=== PATIENT | female | born 1960 | race Caucasian/White ===

== ENCOUNTER 2021-10-15 09:06 | Emergency (ER) | payer MEDICAID, OTHER | END 2021-10-15 11:10 | disposition home or self-care (01) | LOC: CC.ED 09:06 | DX: S83.91XA Sprain of unspecified site of right knee, initial encounter (principal); M17.11 Unilateral primary osteoarthritis, right knee; Z88.5 Allergy status to narcotic agent; Z79.82 Long term (current) use of aspirin; X50.1XXA Overexertion from prolonged static or awkward postures, initial encounter | CPT/HCPCS: 73562-RT; 99283 ==

== ENCOUNTER 2021-10-17 20:42 | Emergency (ER) | payer MEDICAID ==
[2021-10-17] MEDS ORDERED: Ketorolac 60 MG/2 ML SDV IM ONE (21:28)
== END 2021-10-17 21:34 | disposition home or self-care (01) ==
LOC: SUPCPDRO 20:42 → CC.ED 20:42
DX: M17.11 Unilateral primary osteoarthritis, right knee (principal); E78.00 Pure hypercholesterolemia, unspecified; I10 Essential (primary) hypertension; K21.9 Gastro-esophageal reflux disease without esophagitis; E03.9 Hypothyroidism, unspecified; Z88.5 Allergy status to narcotic agent; Z79.82 Long term (current) use of aspirin; Z79.899 Other long term (current) drug therapy
CPT/HCPCS: 96372; 99283; J1885

== ENCOUNTER 2022-03-11 14:13 | Emergency (ER) | payer MEDICAID ==
[2022-03-11] MEDS ORDERED: Sodium Chloride 0.9% 10 ML Syringe FLUSH PRN (14:22)
[2022-03-11] MEDS ORDERED: Alum Hydrox/Mag Hydrox/Simeth 30 ML, Lidocaine 2% 15 ML PO ONE ×2 (14:24)
[2022-03-11] MEDS ORDERED: Sodium Chloride 0.9% 1,000 ML IV SCH (14:30)
[2022-03-11] MEDS ORDERED: Metoclopramide 10 MG/2 ML SDV IVPUSH ONE (14:58)
[2022-03-11 15:22] VITALS: BP 139/70; PULSE 97
[2022-03-11] MEDS ORDERED: Simethicone 80 MG Tab.Chew PO ONE (15:27)
== END 2022-03-11 17:29 | disposition home or self-care (01) ==
LOC: CC.ED 14:13
DX: U07.1 COVID-19 (principal); R11.2 Nausea with vomiting, unspecified; E78.00 Pure hypercholesterolemia, unspecified; I10 Essential (primary) hypertension; K21.9 Gastro-esophageal reflux disease without esophagitis; E03.9 Hypothyroidism, unspecified; Z88.5 Allergy status to narcotic agent; Z79.899 Other long term (current) drug therapy
CPT/HCPCS: 36415; 80053; 81001; 83735; 85025; 87804; 96361; 96374; 99284; 99284-25; A9270-GY; J2765; J7030; U0002

== ENCOUNTER 2023-08-27 13:52 | Day surgery (SDC) | payer MEDICAID ==
[2023-08-27] MEDS: Lactated Ringers 1,000 ML IV SCH (14:25)
[2023-08-27] MEDS ORDERED: fentaNYL 50 MCG/ML SDV ONE (14:32)
[2023-08-27] MEDS ORDERED: Propofol 200 MG/20 ML SDV ONE ×2 (14:32)
[2023-08-27] MEDS ORDERED: Ketamine 200 MG/20 ML MDV ONE (14:32)
== END 2023-08-27 16:02 | disposition home or self-care (01) ==
LOC: CC.SDS 13:52
PROVIDERS: ATTEND Family Medicine
DX: Z12.11 Encounter for screening for malignant neoplasm of colon (principal); D12.0 Benign neoplasm of cecum; D12.3 Benign neoplasm of transverse colon; R19.5 Other fecal abnormalities; K57.30 Diverticulosis of large intestine without perforation or abscess without bleeding; G47.30 Sleep apnea, unspecified
CPT/HCPCS: 00811; 45380; 45385; J2704; J3010; J7120; J3490

== ENCOUNTER 2023-10-15 19:17 | Emergency (ER) | payer MEDICAID | END 2023-10-15 20:08 | disposition home or self-care (01) | LOC: CC.ED 19:17 | DX: T81.31XA Disruption of external operation (surgical) wound, not elsewhere classified, initial encounter (principal); E78.00 Pure hypercholesterolemia, unspecified; I10 Essential (primary) hypertension; J45.909 Unspecified asthma, uncomplicated; K21.9 Gastro-esophageal reflux disease without esophagitis; E03.9 Hypothyroidism, unspecified; Z90.49 Acquired absence of other specified parts of digestive tract; Z90.710 Acquired absence of both cervix and uterus; Z79.82 Long term (current) use of aspirin; Z79.899 Other long term (current) drug therapy | CPT/HCPCS: 99283 ==

== ENCOUNTER 2025-01-10 10:00 | Observation (INO) | payer MEDICAID ==
[2025-01-10] MEDS: Orphenadrine 60 MG/2 ML Inj IV ONE (10:35)
[2025-01-10 10:38] LABS: BASOPHILS ABSOLUTE AUTO 0.02 10^3/uL (0.00-0.50); BASOPHILS PERCENT AUTO 0.3 % (0-1); EOSINOPHILS ABSOLUTE AUTO 0.13 10^3/uL (0.00-1.50); EOSINOPHILS PERCENT AUTO 2.0 % (0-6); IMMATURE GRAN ABSOLUTE AUTO 0.01 10^3/uL (0.00-0.49); IMMATURE GRAN PERCENT AUTO 0.2 % (0.0-4.9); LYMPHOCYTES ABSOLUTE AUTO 2.04 10^3/uL (0.60-5.00); LYMPHOCYTES PERCENT AUTO 30.9 % (24-44); MONOCYTES ABSOLUTE AUTO 0.64 10^3/uL (0.00-1.50); MONOCYTES PERCENT AUTO 9.7 % (0-10); NEUTROPHILS ABSOLUTE AUTO 3.76 x10^3/uL (1.80-8.00); NEUTROPHILS PERCENT AUTO 56.9 % (41-71); PLATELET COUNT,PLT 175 10^3/uL (150-400); RED BLOOD CELL COUNT 4.41 x10^6/uL (4.00-5.50); WHITE BLOOD CELL COUNT,WBC 6.6 10^3/uL (4.0-11.0)
[2025-01-10 10:50] LABS: ALANINE AMINOTRANSFERASE,ALT 46.0 U/L (12-78); ASPARTATE AMNIOTRANSFERASE,AST 23.0 U/L (15-37); BILIRUBIN TOTAL 0.5 mg/dL (0.0-1.0); BLOOD UREA NITROGEN,BUN 20.0 mg/dL (7-18); CARBON DIOXIDE,CO2 29.0 mmol/L (21-32); CHLORIDE,CL 105.0 mEq/L (98-106); CREATININE 0.9 mg/dL (0.6-1.0); EST CRCL DRUG DOSING (CG) 54.53 mL/min; ESTIMATED GFR 71.0 mL/min (>=60); GLUCOSE RANDOM 101.0 mg/dL (75-99); POTASSIUM,K 4.8 mEq/L (3.5-5.0); PROTEIN TOTAL,TP 6.9 g/dL (6.4-8.2); SODIUM,NA 143.0 mEq/L (136-145)
[2025-01-10 10:59] LABS: APPEARANCE,URINE SLIGHTLY CLOUDY (CLEAR); GLUCOSE,URINE NEGATIVE (NEGATIVE); OCCULT BLOOD,URINE TRACE-INTACT (NEGATIVE)
[2025-01-10 11:09] LABS: EPITHELIAL CELLS,URINE MODERATE /HPF (NOT SEEN)
[2025-01-10] MEDS: methylPREDNISolone Sodium Succinate 125 MG/2 ML SDV IVPUSH STA (11:12)
[2025-01-10] MEDS ORDERED: Ondansetron 4 MG/2 ML SDV IV PRN (11:59)
[2025-01-10] MEDS ORDERED: Ondansetron 4 MG Tab.DIS PO PRN (11:59)
[2025-01-10] MEDS ORDERED: Ketorolac 30 MG/ML SDV IVPUSH PRN (15:43)
[2025-01-10] MEDS: Acetaminophen/HYDROcodone 325-5 MG Tab PO PRN (15:52)
[2025-01-10] MEDS ORDERED: Non-Formulary Medication 1 Each (Diclofenac Sodium [Voltaren] 75 MG Tab.Ec) PO SCH (17:30)
[2025-01-10] MEDS ORDERED: Non-Formulary Medication 1 Each (Fluticasone Propion/Salmeterol [Fluticasone-Salmeterol 11 IH SCH (20:00)
[2025-01-10] MEDS ORDERED: Nystatin Topical Powder 15 GM Bottle TOP PRN (20:00)
[2025-01-10] MEDS: methylPREDNISolone Sodium Succinate 40 MG/1 ML SDV IVPUSH SCH (20:03)
[2025-01-10] MEDS: buPROPion 150 MG Tab.ER PO SCH (20:06)
[2025-01-11] MEDS: Calcium Carbonate/Vitamin D3 1250 MG-5 MCG Tab PO SCH (07:30)
[2025-01-11] MEDS ORDERED: Non-Formulary Medication 1 Each (Meloxicam [Meloxicam] 15 MG Tablet) PO SCH (08:00)
== END 2025-01-11 11:30 | disposition home or self-care (01) ==
LOC: CC.ED 10:00 → CC.MS 11:39
PROVIDERS: ADMIT Nurse Practitioner; ATTEND Nurse Practitioner
DX: M51.26 Other intervertebral disc displacement, lumbar region (principal); M54.16 Radiculopathy, lumbar region; E78.00 Pure hypercholesterolemia, unspecified; I10 Essential (primary) hypertension; E03.9 Hypothyroidism, unspecified; F32.A Depression, unspecified; K21.9 Gastro-esophageal reflux disease without esophagitis; Z79.890 Hormone replacement therapy; Z79.82 Long term (current) use of aspirin; Z79.899 Other long term (current) drug therapy
CPT/HCPCS: 36415; 80053; 81001; 83735; 85025; 97161-GP; A9270-GY; J1171; J2360; J2919